=== PATIENT | male | born 1970 | race Caucasian/White ===

== ENCOUNTER 2022-09-14 06:48 | Day surgery (SDC) | payer OTHER, SELFPAY ==
[2022-09-14] VITALS (18 sets, daily range): BP systolic 90–120; BP diastolic 58–93; PULSE 75–98; RESP 12–18; TEMP 36.3–36.6; O2SAT 90–100; BMI 26.6
--- NOTE | 2022-09-14 06:57 | SUR.PREOP ---
Patient provided home covid negative results to RN.
[2022-09-14] MEDS: SODIUM CHLORIDE 0.9 % (FLUSH) 10 ML SYRINGE IVF (07:39)
[2022-09-14] MEDS: LACTATED RINGERS 1000 ML 1,000 ML 100 ML IV (07:39)
[2022-09-14] MEDS: CEFAZOLIN 2 GM INJ IVP (08:00)
[2022-09-14] MEDS: BUPIVACAINE 0.25% 30 ML INJECTION (08:15)
--- NOTE | 2022-09-14 09:16 | P.GSOP_ITS ---
Operative Note Date of procedure: 09/14/22 Pre-op diagnosis: Recurrent right inguinal hernia Post-op diagnosis: same Type of Procedure: laparoscopic repair of recurrent right inguinal hernia right inguinal hernia w ith mesh Indications: The patient is a 51-year-old male with a right inguinal hernia which recurred within the last approximately 2 weeks. He previously had a hernia repair as a child. After discussion of options, because he is symptomatic from the hernia he has elected to proceed with repair. We did discuss that he has had a prior sigmoidectomy and that if there is significant scarring in the preperitoneal space then we would have a low threshold to proceed with open repair. Procedure Description: After discussing the risks and benefits of the procedure, the patient signed informed consent.? The operative site was marked and the patient was brought to the operating room and placed on the operating table in supine position.? Care was taken to pad the patient's pressure points.?? The patient was then intubated by anesthesia.?? The operative site was then prepped and draped in the usual sterile fashion.? A time-out was then performed. A curvilinear incision was made below the umbilicus. Dissection was carried down to subcutaneous tissue until the anterior rectus fascia was encountered. This was incised off the midline on the right. Initially the rectus fibers were not visible and it appeared as though I may possibly have entered the preperitoneal space. The peritoneum itself was not entered. I elected to close this fascial incision with interrupted 0 Vicryl suture and slightly more lateral incised the rectus sheath. Here I encountered the rectus fibers and dissected and retracted them from the posterior rectus sheath. Using my finger to ensure there were no significant adhesions in the preperitoneal space given the patient's prior surgery, I gently dissected the rectus muscle fibers away from the posterior rectus sheath. They came away easily. A port with a dissecting balloon was then introduced into the pre-preperitoneal space. This was inflated under direct vision. The balloon was deflated, removed, and a 10 mm working port was placed. The space was insufflated and a 10 mm 30-degree scope was then advanced into the space. Two 5 mm ports were placed in the midline under direct vision just adjacent to the patient's prior midline incision where there were no adhesions. The epigastric vessels were identified and retracted toward the anterior abdominal wall. The peritoneum was noted to be adherent to the cord structures. A direct inguinal hernia was also noted. The direct hernia was reduced easily and Srinivasa's ligament and the pubic bone were exposed medially. I was able to take this dissection across the midline to ensure adequate coverage of the mesh over the direct hernia. Following this, dissection was carried out laterally. The peritoneum was adherent to the cord structures consistent with prior hernia repair. This was dissected off of the cord structures and reduced this adequately to create a space for the mesh to lay flat. There was no large cord lipoma noted. Once dissection was complete, a piece of Bard 3DMax mesh for the appropriate side was placed into the abdomen. This was positioned with the marker pointed medially. A Tacker was used to attach the mesh medially at Srinivasa's ligament and 1 tack laterally with care to avoid the epigastric vessels and stay above the inguinal ligament. Because of the direct hernia, I placed an additional tack on the anterior medial abdominal wall. Once this was completed, the preperitoneal space desufflated under direct vision to ensure the mesh laid flat. The ports were removed. The fascia from the infraumbilical port was closed with 0 Vicryl. The skin incisions were closed with absorbable subcuticular suture. Sterile dressings were then applied. The scrotum was examined to ensure that both testicles were down. Instrument sponge and needle counts were correct at the end of the case. ? The patient was then woken and transported to the recovery area in stable condition. ? The patient tolerated the procedure well. Findings: Direct right inguinal hernia. Small recurrent indirect inguinal hernia. Anesthesia: GETA Surgeon: Phyllis Akers MD Estimated blood loss (mL): 5 Condition: stable Disposition: PACU
--- NOTE | 2022-09-14 09:28 | W.ANESCHARGE ---
Anesthesia Charges Start Date/Time Anesthesia Start Date: 09/14/22 Anesthesia Start Time: 07:52 Stop Date/Time Anesthesia Stop Date: 09/14/22 Anesthesia Stop Time: 09:23
[2022-09-14] MEDS: ONDANSETRON ODT 4 MG TAB PO (11:49)
--- NOTE | 2022-09-14 11:54 | SUR.PHASEII ---
Patient dressed with assistance from spouse. Transferred independently to [facility]. Patient became nauseated as discharge instructions were discussed. IV had previously been removed. VORB 4 mg Zofran ODT once now Ricardo CASTRO.
== END 2022-09-14 12:42 | disposition home or self-care (01) ==
PROVIDERS: Visit Provider Surgery
PROC: (CPT 49650; principal; 2022-09-14 08:00)
DX: K40.91 Unilateral inguinal hernia, without obstruction or gangrene, recurrent (principal)
CPT/HCPCS: 49651; 00830; A9270; C1781; J0330; J0690; J1885; J2250; J2405; J2704; J2710; J3010; J3490; J7120

== ENCOUNTER 2023-12-19 15:19 | Emergency (ER) | payer BC, SELFPAY ==
[2023-12-19 15:27] VITALS: BP 137/91; PULSE 108; RESP 18; TEMP 36.9; O2SAT 97; BMI 28.1
--- OUTSIDE RECORDS SUMMARY | 2023-12-19 15:28 | XMS_ITS | Referral Summary ---
Author Name Unknown Organization [facility] Address [address] [place] [address] Care Team Providers Care Integrated Logistics Operations Manager Name Role Phone Keyur Kaminski MD Unavailable [phone] Keyur Kaminski MD Primary Care Provider + Encounters Date Type Department Care Team Description 10/26/2023 MyC Medical Advice [facility] [address] [facility] [address] [place] [address] Keyur Kaminski MD MyChart Communication 10/10/2023 Telephone [facility] [address] [facility] [address] [place] [address] Keyur Kaminski MD Prior Auth - Medication (REPATHA SURECLICK 140 MG/ML prefilled autoinjector - DENIED) 10/08/2023 9:00 AM VOICE COACH Virtual Visit [facility] [address] [facility] [address] [place] [phone] Keyur Kaminski MD Hyperlipidemia, unspecified hyperlipidemia type (Primary Dx); Gastroesophageal reflux disease with esophagitis without hemorrhage; Anxiety from Last 3 Months Allergies Active Allergy Reactions Criticality Noted Date Comments Adhesive Tape Other (See Comments) 04/23/2020 Redness, contact dermatitis related symptoms per pt. Amoxicillin-Pot Clavulanate GI Disturbance 10/25/2010 Ciprofloxacin Diarrhea 11/22/2018 c-diff c-diff Clavulanic Acid Diarrhea 11/22/2018 Fish Oil Other (See Comments) 11/29/2009 ?Rizvi Fish, Sole? Rosuvastatin Other (See Comments) High 01/09/2020 Elevated Liver Enzymes Sulfa Antibiotics Hives High 03/09/2017 Medications Medication Sig Dispensed Refills Start Date End Date Status aspirin (ASA) 81 MG EC tablet Take 81 mg by mouth Active augmented betamethasone dipropionate (DIPROLENE AF) 0.05 % external creamIndications:Ecz sandoval, unspecified type APPLY TO AFFECTED AREA TWICE A DAY 50 g 1 03/10/2022 Active rosuvastatin (CRESTOR) 5 MG tabletIndications:Hy perlipidemia, unspecified hyperlipidemia type Take 1 tablet (5 mg) by mouth daily 90 tablet 3 10/08/2023 Active REPATHA SURECLICK 140 MG/ML prefilled autoinjectorIndicati ons:Hyperlipidemia, unspecified hyperlipidemia type Inject 1 mL (140 mg) Subcutaneous every 14 days 6 mL 3 10/08/2023 Active ezetimibe (ZETIA) 10 MG tabletIndications:Hy perlipidemia, unspecified hyperlipidemia type Take 1 tablet (10 mg) by mouth daily 90 tablet 3 10/08/2023 Active omeprazole (PRILOSEC) [address] capsuleIndications:G astroesophageal reflux disease with esophagitis without hemorrhage Take 1 capsule (40 mg) by mouth daily 90 capsule 3 10/08/2023 Active ALPRAZolam (XANAX) 0.5 MG tabletIndications:An xiety TAKE 1 TABLET BY MOUTH TWICE DAILY NEEDED FOR ANXIETY. 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 Hiatal hernia 07/14/2019 Diverticulitis of colon 03/09/2017 Immunizations Name Administration Dates Next Due COVID-19 Bivalent 12+ (Pfizer) 05/08/2022 COVID-19 MONOVALENT 12+ (Pfizer) 05/04/2021,08/06,07/28/2020 COVID-19 Monovalent 18+ (Moderna) 12/02/2021 Flu, Unspecified 04/02/2013 [id number] Novel Flu- Nasal 05/25/2009 Influenza (IIV3) PF 06/16/2014 Influenza Vaccine >6 months,quad, PF 10/2021,06/05/2019,06/07/2017,2015,05/13/2015 Influenza Vaccine, 6+MO IM (QUADRIVALENT W/PRESERVATIVES) 07/27/2023,05/23/2021 Influenza, seasonal, injectable, PF 06/01/2020,1 ,05/08/2013 Mantoux Tuberculin Skin Test 08/15/2010,08/08/19 11 TDAP (Adacel,Boostrix) 11/28/2018 Social History Tobacco Use Types Packs/Day Years Used Date Smoking Tobacco: Never Smokeless Tobacco: Never Tobacco Cessation:Counseling Given: Not Answered Alcohol Use Standard Drinks/Week Comments Yes 0 (1 standard drink = 0.6 oz pur e alcohol) 3x per week PHQ-2 Answer Date Recorded PHQ-2 Score 0 09/07/2022 Adolescent Education Answer Date Record ed Getting School Help Needed Not on file 05/02 Sex and Gender Information Value Date Recorded Sex Assigned at Not on file Gender Identity Not on file Sexual Orientation Not on file Last Filed Vital Signs Vital Sign Reading Time Taken Comments Blood Pressure 128/85 04/11/2023 7:29 AM CDT Pulse 89 04/11/2023 7:29 AM CDT Temperature 36.1 ??C (96.9 ??F) 04/11/2023 7:29 AM CD T Respiratory Rate 14 04/11/2023 7:29 AM CDT Oxygen Saturation 97% 04/11/2023 7:29 AM CDT Inhaled Oxygen Concentration - - Weight 83.1 kg (183 lb 4.8 oz) 04/11/2023 7:29 A M CDT Height 175.3 cm (5' 9) 04/11/2023 7:29 AM CDT Body Mass Index 27.07 04/11/2023 7:29 AM CDT Plan of Treatment Not on file Procedures Procedure Name Priority Date/Time Associated Diagnosis Comments COMPREHENSIVE METABOLIC PANEL Routine 04/11/2023 8:01 AM CDT Annual physical exam LIPID REFLEX TO DIRECT LDL PANEL Routine 04/11/2023 8:01 AM CDT Hyperlipidemia, unspecified hyperlipidemia type from Last 3 Months or Most Recently Relevant to Health Maintenance Results * Lipid panel reflex to direct LDL Fasting (04/11/2023 8:01 AM CDT) Cholesterol 103 <200 mg/dL 04/11/2023 1:25 PM CDT [facility] Triglycerides 92 <150 mg/dL 04/11/2023 1:25 PM CDT [facility] Direct Measure HDL 45 >=40 mg/dL 2022 1:25 PM CDT [facility] LDL Cholesterol Calculated 40 <=100 mg/dL 04/11/2023 1:25 PM CDT [facility] Non HDL Cholesterol 58 <130 mg/dL 04/11/2023 1:25 PM CDT [facility] Blood BLOOD SPECIMEN / Unknown Venipuncture / Unknown 04/11/2023 8:01 AM CDT 04/11/2023 8:01 AM CDT Narrative [facility] - 04/11/2023 1:25 PM CDT Cholesterol Desirable: ??<200 mg/dL Triglycerides Normal: ??Less than 150 mg/dL Borderline High: ??150-199 mg/dL High: ??200-499 mg/dL Very High: ??Greater than or equal to 500 mg/dL Direct Measure HDL Female: ??Greater than or equal to 50 mg/dL Male: ??Greater than or equal to 40 mg/dL LDL Cholesterol Desirable: ??<100mg/dL Above Desirable: ??100-129 mg/dL Borderline High: ??130-159 mg/dL High: ??160-189 mg/dL Very High: ??>= 190 mg/dL Non HDL Cholesterol Desirable: ??130 mg/dL Above Desirable: ??130-159 mg/dL Borderline High: ??160-189 mg/dL High: ??190-219 mg/dL Very High: ??Greater than or equal to 220 mg/dL Keyur Kaminski MD LAB - BLOOD [place] [facility] [address] [facility], [address] [place] [address], [facility] [phone] * (ABNORMAL) Comprehensive metabolic panel (BMP + Alb, Alk Phos, ALT, AST, Total. Bili, TP) (04/11/2023 8:01 AM CDT) Sodium 141 136 - 145 mmol/L 04/11/2023 1:25 PM CDT [facility] Potassium 4.2 3.4 - 5.3 mmol/L 04/11/2023 1:25 PM CDT [facility] Chloride 104 98 - 107 mmol/L 04/11/2023 1:25 PM CDT [facility] Carbon Dioxide (CO2) 27 22 - 29 mmol/L 04/11/2023 1:25 PM CDT [facility] Anion Gap 10 7 - 15 mmol/L 04/11/2023 1:25 PM CDT [facility] Urea Nitrogen 19.3 6.0 - 20.0 mg/dL 04/11/2023 1:25 PM CDT [facility] Creatinine 1.04 0.67 - 1.17 mg/dL 04/11/2023 1:25 PM CDT [facility] Calcium 9.7 8.6 - 10.0 mg/dL 04/11/2023 1:25 PM CDT [facility] Glucose 100(H) 70 - 99 mg/dL 04/11/2023 1:25 PM CDT [facility] Alkaline Phosphatase 76 40 - 129 U/L 04/11/2023 1:25 PM CDT [facility] AST 41 0 - 45 U/L 04/11/2023 1:25 PM CDT [facility] Comment:Reference intervals for this test were updated on 01/15/2023 to more accurately reflect our healthy population. There may be differences in the flagging of prior results with similar values performed with this method. Interpretation of those prior results can be made in the context of the updated reference intervals. ALT 54 0 - 70 U/L 04/11/2023 1:25 PM CDT [facility] Comment:Reference intervals for this test were updated on 01/15/2023 to more accurately reflect our healthy population. There may be differences in the flagging of prior results with similar values performed with this method. Interpretation of those prior results can be made in the context of the updated reference intervals. Protein Total 7.1 6.4 - 8.3 g/dL 04/11/2023 1:25 PM CDT [facility] Albumin 4.5 3.5 - 5.2 g/dL 04/11/2023 1:25 PM CDT [facility] Bilirubin Total 0.5 <=1.2 mg/dL 04/11/2023 1:25 PM CDT [facility] GFR Estimate 87 >60 mL/min/1. 73m2 04/11/2023 1:25 PM CDT [facility] Blood BLOOD SPECIMEN / Unknown Venipuncture / Unknown 04/11/2023 8:01 AM CDT 04/11/2023 8:01 AM CDT Keyur Kaminski MD LAB - BLOOD [facility] Organization Address City/State/ZIP Co de Phone Number [facility] [address] [facility], [address] [place] [address], [facility] [phone] from Last 3 Months or Most Recently Relevant to Health Maintenance Care Teams Integrated Logistics Operations Manager Relationship Specialty Start Date End Date Keyur Kaminski MD [address] [place], [place] [id number] PCP - General Internal Medicine 04/04/23 Keyur Kaminski MD [address] [place] [address] Assigned PCP 02/22/22
--- OUTSIDE RECORDS SUMMARY | 2023-12-19 15:28 | XMS_ITS | Clinical Summary ---
Author Name Unknown Organization [facility] Address [place], [place] [address] Care Team Providers Care Child Specialist Name Role Phone Keyur Kaminski MD Primary Care Provider + Pcp, No Unavailable Unavailable Allergies Active Allergy Reactions Criticality Noted Date Comments Amoxicillin-Pot Clavulanate GI Upset 10/26/19 11 Ciprofloxacin Diarrhea 11/22/2018 c-diff Clavulanic Acid Diarrhea 11/22/2018 Sulfa (Sulfonamide Antibiotics) Hives 11/04 Medications Medication Sig Dispensed Refills Start Date End Date Status docosahexanoic acid-eicosapent (MAXEPA; FISH OIL) capsule Take by mouth every morning. 0 10/25/2010 Active omeprazole (PRILOSEC) 20 mg capsule Take 1 capsule by mouth once daily before a meal. 0 10/25/2010 Active fluticasone, 50 mcg per actuation, nasal (FLONASE) 50 mcg/Actuation nasal spray Inhale 2 Sprays into both nostrils 2 times daily. 2 Bottle 11 04/07/2011 Active pravastatin (PRAVACHOL) 20 mg tablet Take 1 tablet by mouth at bedtime. 90 tablet 3 06/14/2011 Active azithromycin (ZITHROMAX Z-FRANCK) 250 mg tablet Take 1 tablet by mouth. Take 2 tablets on first day then 1 tablet daily 6 tablet 0 08/09/2011 Active omeprazole (PRILOSEC) 20 mg Delayed-Release capsule Take 1 capsule by mouth once daily before a meal. 0 11/22/2018 Active fluticasone (50 mcg per actuation) nasal solution (FLONASE) Inhale 1 Thorp in the nostril(s) once daily. 1 Bottle 11/22/2018 Active Active Problems Problem Noted Date Diagnosed Date Family history of early CAD 10/30/2010 Elevated cholesterol 10/30/2010 Immunizations Name Administration Dates Next Due Tuberculin (PPD) 08/15/2010,08/08/2010 Family History Relation Name Status Comments Father (Age 47) CAD/CA Mother Alive Social History Tobacco Use Types Packs/Day Years Used Date Smoking Tobacco: Never Smokeless Tobacco: Never Alcohol Use Standard Drinks/Week Comments Yes 0 (1 standard drink = 0.6 oz pur e alcohol) infrequent Sex and Gender Information Value Date Recorded Sex Assigned at Not on file Gender Identity Not on file Sexual Orientation Not on file Obstetrics History Last Filed Vital Signs Vital Sign Reading Time Taken Comments Blood Pressure 127/85 11/22/2018 12:58 PM CDT Pulse 90 11/22/2018 12:58 PM CDT Temperature - - Respiratory Rate - - Oxygen Saturation 98% 11/22/2018 12:58 PM CDT Inhaled Oxygen Concentration - - Weight 77.7 kg (171 lb 6.4 oz) 11/22/2018 12:58 PM CDT Height 177.8 cm (5' 10) 10/25/2010 4:40 PM CDT Body Mass Index 24.59 10/25/2010 4:40 PM CDT Plan of Treatment Health Maintenance Due Date Last Done Comments Tdap 11/29/1982 Depression screening for age 12+ 1983 HIV for age 15-65 11/29/1986 BMI (ht and wt on same day) for age 18+ 11/29/1989 Hepatitis C screening for ag e 18-79 11/29/1989 Tetanus booster 1991 Colonoscopy through age 75 11/29/2016 Lipids for age 45-75 11/29/2016 10/26/2010 Zoster (shingles) series for age 50+ (1 of 2) 11/29/2021 COVID-19 vaccine series ( - 2022- season) 2023 Influenza for age 50-64 04/06/2024 Pneumococcal series for age 6-64 Aged Out No longer eligible based on patient's age to complete this topic Procedures Procedure Name Priority Date/Time Associated Diagnosis Comments LIPID PANEL Routine 10/26/2010 8:30 AM CDT Chest pain from Last 3 Months or Most Recently Relevant to Health Maintenance Results * (ABNORMAL) LIPID PANEL (10/26/2010 8:30 AM CDT) CHOLESTEROL,TOTAL 179 <200 mg/dL [facility] TRIGLYCERIDES 151(H) 40 - 150 mg/dL [facility] HDL CHOLESTEROL 37(L) >40 mg/dL [facility] LDL CHOLESTEROL 112 mg/dL [facility] CHOL/HDL RATIO 4.84 Ratio [facility] Blood specimen (specimen) BLOOD SPECIMEN / Unknown 10/26/2010 8:30 AM CDT 10/26/2010 8:30 AM CDT Heber Garcia [facility] [address] [place] [address] from Last 3 Months or Most Recently Relevant to Health Maintenance Care Teams Child Specialist Relationship Specialty Start Date End Date Keyur Kaminski MD PCP - General Family Practice 11/22/18 Pcp, No . 11/22/18
--- OUTSIDE RECORDS SUMMARY | 2023-12-19 15:28 | XMS_ITS | Clinical Summary ---
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/14/2019 Hiatal hernia 07/14/2019 Diverticulitis of colon 03/09/2017 Encounters Date Type Department Care Team Description 10/26/2023 MyC Medical Advice [facility] [address] [place] [phone] Keyur Kaminski MD MyChart Communication 10/10/2023 Telephone [facility] [address] [place] [phone] Keyur Kaminski MD Prior Auth - Medication (REPATHA SURECLICK 140 MG/ML prefilled autoinjector - DENIED) 10/08/2023 9:00 AM VENEER PATCHER Virtual Visit [facility] [address] [place] [phone] Keyur Kaminski MD Hyperlipidemia, unspecified hyperlipidemia type (Primary Dx); Gastroesophageal reflux disease with esophagitis without hemorrhage; Anxiety from Last 3 Months Immunizations Name Administration Dates Next Due COVID-19 Bivalent 12+ (Pfizer) 05/08/2022 COVID-19 MONOVALENT 12+ (Pfizer) 05/04/2021,08/06,07/28/2020 COVID-19 Monovalent 18+ (Moderna) 12/02/2021 Flu, Unspecified 04/02/2013 [id number] Novel Flu- Nasal 05/25/2009 Influenza (IIV3) PF 06/16/2014 Influenza Vaccine >6 months,quad, PF 10/2021,06/05/2019,06/07/2017,2015,05/13/2015 Influenza Vaccine, 6+MO IM (QUADRIVALENT W/PRESERVATIVES) 07/27/2023,05/23/2021 Influenza, seasonal, injectable, PF 06/01/2020,1 ,05/08/2013 Mantoux Tuberculin Skin Test 08/15/2010,08/08/19 11 TDAP (Adacel,Boostrix) 11/28/2018 Family History Medical History Relation Comments Coronary Artery Disease Father Myocardial Infarction Father Diabetes Maternal Grandfather Hypertension Mother Kidney Disease Mother Lymphoma Mother Relation Status Comments Father Maternal Grandfather Mother Social History Tobacco Use Types Packs/Day Years [...] 04/11/2023 7:29 AM CDT Plan of Treatment Health Maintenance Due Date Last Done Comments CT COLONOGRAPHY 1971 FIT 1971 FLEX SIG 1971 sDNA (Cologuard) 1971 COLONOSCOPY 11/29/1981 COLORECTAL CANCER SCREENING 11/29/1981 HIV SCREENING 11/29/1986 HEPATITIS C SCREENING 11/29/1989 HEPATITIS B IMMUNIZATION (1 of 3 - 19+ 3-dose series) 11/29/1990 ZOSTER IMMUNIZATION (1 of 2) 11/29/2021 PHQ-2 (once per calendar year) 2023 09/07/2022, 03/10/2022 ANNUAL REVIEW OF HM ORDERS 04/11/2024 04/11/2023, LIPID 04/11/2024 04/11/2023, 03/10/2022 YEARLY PREVENTIVE VISIT 04/11/2024 04/11/2023, 03/10 GLUCOSE 04/11/2026 04/11/2023, 03/10/2022 ADVANCE CARE PLANNING 04/11/2028 04/11/2023, 023 DTAP/TDAP/TD IMMUNIZATION (2 - Td or Tdap) 11/28/2028 11/28/2018 COVID-19 Vaccine Completed 07/27/2023, 10/2021, 12/02/2021, Additional history exists INFLUENZA VACCINE Completed 07/27/2023, , 05/23/2021, Additional history exists HPV IMMUNIZATION Aged Out No longer e ligible based on patient's age to complete this topic IPV IMMUNIZATION Aged Out No longer e ligible based on patient's age to complete this topic MENINGITIS IMMUNIZATION Aged Out No l onger eligible based on patient's age to complete this topic Pneumococcal Vaccine: Pediatrics (0 to 5 Years) and At-Risk Patients (6 to 64 Years) Aged Out No longer eligible based on patient's age to complete this topic RSV MONOCLONAL ANTIBODY Aged Out No l onger eligible based on patient's age to complete [...] mg/dL Keyur Kaminski MD LAB - BLOOD [place] [facility] [address] [facility] [address], [address] [place] [address], [facility] [phone] * (ABNORMAL) Comprehensive metabolic panel (BMP + [...] CDT Keyur Kaminski MD LAB - BLOOD [place] [facility] Organization Address City/State/ZIP Co de Phone Number [facility] [place] [facility] [address] [facility], [address] [place] [address], [facility] [phone] from Last 3 Months or Most Recently Relevant to Health Maintenance Care Teams Director Mortgage Relationship Specialty Start Date End Date Keyur Kaminski MD [address] [place] [address] PCP - General Internal Medicine 04/04/23 Keyur Kaminski MD [address] [place] [address] Assigned PCP 02/22/22
--- OUTSIDE RECORDS SUMMARY | 2023-12-19 15:28 | XMS_ITS | Encounter Summary ---
Author Name Unknown Organization [facility] Address [address] [place] [address] Care Team Providers Care Software Quality Specialist Name Role Phone Keyur Kaminski MD Unavailable Keyur Kaminski MD Primary Care Provider + Reason for Visit * Reason Comments Recheck Medication Encounter Details Date Type Department Care Team (Late st Contact Info) Description 10/08/2023 9:00 AM MANUFACTURING ENGINEER AUTOMOTIVE Virtual Visit [address] [place] [address] Keyur Kaminski MD [address] [place] [address] Hyperlipidemia, unspecified hyperlipidemia type (Primary Dx); Gastroesophageal reflux disease with esophagitis without hemorrhage; Anxiety Social History Tobacco Use Types Packs/Day Years [...] on file Sexual Orientation Not on file documented as of this encounter Patient Instructions * Patient Instructions* Keyur Kaminski MD - 10/08/2023 9:00 AM MANUFACTURING ENGINEER AUTOMOTIVE Will continue current medication regimen. FACTURING ENGINEER AUTOMOTIVE documented in this encounter Progress Notes * Keyur Kaminski MD - 10/08/2023 9:00 AM CST Jose is a 52 year old who is being evaluated via a billable video visit. How would you like to obtain your AVS? MyChart If the video visit is dropped, the invitation should be resent by: Send to e- mail at: [email or web address] Will anyone else be joining your video visit? No Assessment & Plan Hyperlipidemia, unspecified hyperlipidemia type Patient has currently been tolerating his cholesterol medication regimen without issue. We did elect to continue rosuvastatin at 5 mg daily, Repatha 140 mg injections every 14 days, and Zetia 10 mg daily. Patient has previously been seen in the lipid clinic at [place]. - rosuvastatin (CRESTOR) 5 MG tablet; Take 1 tablet (5 mg) by mouth daily - REPATHA SURECLICK 140 MG/ML prefilled autoinjector; Inject 1 mL (140 mg) Subcutaneous every 14 days - ezetimibe (ZETIA) 10 MG tablet; Take 1 tablet (10 mg) by mouth daily Gastroesophageal reflux disease with esophagitis without hemorrhage Patient feeling symptoms under control. He will continue his omeprazole 40 mg daily. Patient had nofurther questions or concerns in this regard. - omeprazole (PRILOSEC) [address] capsule; Take 1 capsule (40 mg) by mouth daily Anxiety Patient appears to be responding well to therapy and as needed alprazolam for management of his anxiety. He is reporting very infrequent use of his alprazolam. Patient will continue alprazolam 0.5 mgtwice per day as needed for anxiety. Side effects of benzos reviewed. - ALPRAZolam (XANAX) 0.5 MG tablet; TAKE 1 TABLET BY MOUTH TWICE DAILY NEEDED FOR ANXIETY. Prescription drug management 15 minutes spent by me on the date of the encounter doing chart review, history and exam, documentation and further activities per the note BMI Estimated body mass index is 27.07 kg/m?? as calculated from the following: Height as of 04/11/23: 1.753 m (5' 9). Weight as of 04/11/23: 83.1 kg (183 lb 4.8 oz). See Patient Instructions Ramiro Garcia is a 52 year old, presenting for the following health issues: Recheck Medication Patient is a 52-year-old male who participates in a virtual visit for follow-up on his medications.Patient has a history of hyperlipidemia, and he currently takes Repatha 140 mg injections every 2 weeks, rosuvastatin 5 mg daily, and Zetia 10 mg daily for management of his cholesterol. Patient has had some difficulties tolerating higher doses of statins due to elevations in his liver enzymes. Patient also takes omeprazole 40 mg daily for management of reflux. He does have a history of anxiety. Patient does see a therapist on a weekly basis, he has found this to be quite helpful. He does keep a supply of alprazolam 0.5 mg tablets on hand for episodes of breakthrough anxiety. Patient states that he typically will use 1 late in the evenings. He tries to avoid frequent use of this medication.Patient is tolerating all medications without issue. Review of Systems Constitutional, HEENT, cardiovascular, pulmonary, gi and gu systems are negative, except as otherwise noted. Objective Vitals: No vitals were obtained today due to virtual visit. Physical Exam GENERAL: alert and no distress EYES: Eyes grossly normal to inspection. No discharge or erythema, or obvious scleral/conjunctival abnormalities. RESP: No audible wheeze, cough, or visible cyanosis. SKIN: Visible skin clear. No significant rash, abnormal pigmentation or lesions. NEURO: Cranial nerves grossly intact. Mentation and speech appropriate for age. PSYCH: Appropriate affect, tone, and pace of words Video-Visit Details Type of service: Video Visit Originating Location (pt. Location): Home Distant Location (provider location): On-site Platform used for Video Visit: Aleksandar Signed Electronically by: Keyur Kaminski MD FACTURING ENGINEER AUTOMOTIVE documented in this encounter Plan of Treatment Not on file documented as of this encounter Visit Diagnoses Diagnosis Hyperlipidemia, unspecified hyperlipidemia type- Primary Gastroesophageal reflux disease with esophagitis without hemorrhage Anxiety Anxiety state, unspecified documented in this encounter Care Teams Software Quality Specialist Relationship Specialty Start Date End Date Keyur Kaminski MD [address] [place] [address] PCP - General Internal Medicine 04/04/23 Keyur Kaminski MD [address] [place], [place] [id number] Assigned PCP 02/22/22 documented as of this encounter
--- OUTSIDE RECORDS SUMMARY | 2023-12-19 15:28 | XMS_ITS | Encounter Summary ---
Author Name Unknown Organization [facility] Address [address] [place] [address]. [place] [address] Care Team Providers Care Stitcher Hand Name Role Phone Keyur Kaminski MD Unavailable [phone] Keyur Kaminski MD Primary Care Provider + Reason for Visit * Reason Onset Date Comments MyChart Communication 10/26/2023 Encounter Details Date Type Department Care Team (Late st Contact Info) Description 10/26/[address] [facility] [address] [facility] [address] [place] [address] Keyur Kaminski MD [address] [place] [address] MyChart Communication Social History Tobacco Use Types Packs/Day Years [...] on file documented as of this encounter Miscellaneous Notes * Telephone Encounter - Shayna Tsang RN - 10/26/2023 3:36 PM CDT Please see patient's CasterStatst message below. Please advise, thanks. documented in this encounter Plan of Treatment Not on file documented as of this encounter Visit Diagnoses Not on filedocumented in this encounter Care Teams Stitcher Hand Relationship Specialty Start Date End Date Keyur Kaminski MD [address] [place] [address] PCP - General Internal Medicine 04/04/23 Keyur Kaminski MD [address] [place] [address] Assigned PCP 02/22/22 documented as of this encounter
--- OUTSIDE RECORDS SUMMARY | 2023-12-19 15:28 | XMS_ITS | Encounter Summary ---
Author Name Unknown Organization [facility] Address [address] [place] [address] Care Team Providers Care Vocational Counselor Name Role Phone Keyur Kaminski MD Unavailable [phone] Keyur Kaminski MD Primary Care Provider + Reason for Visit * Reason Onset Date Comments Prior Auth - Medication 10/10/2023 REPATHA SURECLICK 140 MG/ML prefilled autoinjector - DENIED Encounter Details Date Type Department Care Team (Late st Contact Info) Description 10/10/[address] [place] [address] Keyur Kaminski MD [address] [place] [address] Prior Auth - Medication (REPATHA SURECLICK 140 MG/ML prefilled autoinjector - DENIED) Social History Tobacco Use Types Packs/Day Years [...] encounter Miscellaneous Notes * Telephone Encounter - Sheryl Sánchez RN - 11/05/2023 3:55 PM CDT Patient called back and was advised of note. Patient would like the release to be faxed. personal fax [phone]- done @ 405pm Gave patient [place] fax # [phone] * Telephone Encounter - Lainey Mckeon RN - 11/05/2023 3:36 PM CDT Images from the original note were not included. Unable to collect authorization for [place] in Care Everywhere as authorization can only be collected in current visit. Video visit note from 10/08/2023 may need to be addended to see if we can print out consent form and patient will need to fill out consent form in order to view records. Attempt # 1 Called Called and left patient a voice mail message on November 05, 2023 3:39 PM to call back the clinic at [phone]. Thank you, Hilario Mckeon, device engineer [facility] 3:39 PM 11/05/2023 * Telephone Encounter - Jo Valadez APRN CNP - 11/05/2023 3:00 PM CDT Can we print it out and send to referrals * Telephone Encounter - Lauren Hernandez - 11/05/2023 2:06 PM CDT Images from the original note were not included. I am unable to see the [facility] visit note - I did request patient authorization. Please advise. * Telephone Encounter - Keyur Kaminski MD - 11/02/2023 4:52 PM CDT Can we please resubmit his letter of medical necessity along with the [facility] visit with Dr. Briceno on June 17, 2021. This is the specialist that had previously managed his Repatha via prescription. * Telephone Encounter - Monica Franz RN - 10/30/2023 8:35 AM CDT [place] denied, routed to provider to review denial information and advise on next steps. Monica Franz RN [facility] * Telephone Encounter - Lauren Hernandez - 10/30/2023 8:20 AM CDT Images from the original note were not included. PRIOR AUTHORIZATION DENIED Medication: REPATHA SURECLICK 140 MG/ML prefilled autoinjector - DENIED Denial Date: 10/30/2023 Denial Rational: INSURANCE STATES PATIENT DID NOT MEET COVERAGE CRITERIA - Appeal Information: IF YOU WOULD LIKE TO APPEAL PLEASE SUPPLY PA TEAM WITH A LETTER OF MEDICAL NECESSITY WITH CLINICAL REASON. * Telephone Encounter - Lauren Hernandez - 10/29/2023 11:57 AM CDT RESUBMITTED WITH LETTER OF MEDICAL NECESSITY. PA Initiation Medication: REPATHA SURECLICK 140 MG/ML prefilled autoinjector - DENIED Insurance Company: [place] Medicaid ([facility]) - Pharmacy Filling the Rx: [facility] [address] [place] [address] - [address] [place] [address] Filling Pharmacy Filling Pharmacy Start Date: 10/22/2023 * Telephone Encounter - Keyur Kaminski MD - 10/26/2023 2:04 PM CDT A letter of medical necessity has been dictated and is available in [facility]. * Telephone Encounter - Lauren Hernandez - 10/23/2023 10:08 AM CDT Images from the original note were not included. PRIOR AUTHORIZATION DENIED Medication: REPATHA SURECLICK 140 MG/ML prefilled autoinjector - DENIED Denial Date: 10/23/2023 Denial Rational: INSURANCE STATES PATIENT DID NOT MEET COVERAGE CRITERIA - Appeal Information: IF YOU WOULD LIKE TO APPEAL PLEASE SUPPLY PA TEAM WITH A LETTER OF MEDICAL NECESSITY WITH CLINICAL REASON. * Telephone Encounter - Lauren Hernandez - 10/22/2023 2:31 PM CDT Images from the original note were not included. Retail Pharmacy Prior Authorization Team PA Initiation Medication: REPATHA SURECLICK 140 MG/ML prefilled autoinjector Insurance Company: [place] Medicaid ([facility]) - Pharmacy Filling the Rx: [facility] [address] [place] [address] Filling Pharmacy Filling Pharmacy Start Date: 10/22/2023 * Telephone Encounter - Martha Hassan - 10/10/2023 8:13 AM CST Images from the original note were not included. Retail Pharmacy Prior Authorization Team Note: Due to record-high volumes, our turn-around time is taking longer than usual . We are currently 10 business days behind in the pools. We are working diligently to submit all requests in a timely manner and in the order they are received. Please only flag TRUE URGENT requests as high priority to the pool at this time. If you have questions - please send a note/message in the active PA encounter and send back to the RPPA (Retail Pharmacy Prior Authorization) team [[id number]]. If you have more specific questions about our process please reach out to our supervisor maintenance and custodians Nataliia Donald. Thank you! RINARY MILK SPECIALIST documented in this encounter Plan of Treatment Not on file documented as of this encounter Visit Diagnoses Not on filedocumented in this encounter Care Teams Vocational Counselor Relationship Specialty Start Date End Date Keyur Kaminski MD [address] [place] [address] PCP - General Internal Medicine 04/04/23 Keyur Kaminski MD [address] [place] [address] Assigned PCP 02/22/22 documented as of this encounter
--- NOTE | 2023-12-19 16:47 | CT_ITS ---
Patient: NIKA NOLASCO Facility:?[facility] Patient ID:?[id number] Site Patient ID:?[id number]. Site :?[id number] Study:?CT-Abdomen/Pelvis W/ 93CC ISOVUE 370-12/19/2023 5:22:32 PM Ordering Physician:TAMARA Final Report: INDICATION: Abdominal pain. TECHNIQUE: Multiplanar CT examination of the abdomen and pelvis was performed after the administration of 93 mL Isovue 370 intravenous contrast. COMPARISON: None. FINDINGS: Lower chest: No focal consolidation. Normal heart size. No pleural effusions or pneumothorax. Liver: Hepatic steatosis. Gallbladder: Unremarkable. Biliary: Unremarkable. Pancreas: Within normal limits. Spleen: Unremarkable. Adrenal glands: Unremarkable. Renal/ureters/bladder: Normal in size and symmetrically enhancing. No obstructive uropathy. No hydronephrosis or obstructive urinary calculi. No suspicious renal masses. The ureters appear unremarkable. The bladder is within normal limits. Pelvis: Unremarkable. Gastrointestinal: Anastomotic chain sutures at the rectosigmoid junction. Mild colonic wall thickening and pericolonic fat stranding involving a short segment of the sigmoid colon, with associated sigmoid colonic diverticulosis. No peridiverticular abscess. No extraluminal air. Nonvisualized appendix. Mild colonic stool burden. Vasculature: No aortic aneurysm. The portal vein remains patent. No significant atherosclerotic calcifications. Lymph nodes: No pathologic lymphadenopathy by size criteria. Peritoneum: Trace free fluid along the left pericolic gutter and into the lower pelvis. No pneumoperitoneum. No drainable fluid collections. Abdominal wall/soft tissues: Unremarkable. Status post right inguinal hernia repair. Tiny fat containing umbilical hernia. Bones: No acute osseous abnormalities. IMPRESSION: 1. Findings compatible with acute uncomplicated sigmoid diverticulitis. No abscess identified. 2. Diffuse hepatic steatosis. Please note that all CT scans at this facility use dose modulation, iterative reconstruction, and/or weight-based dosing when appropriate to reduce radiation dose to as low as reasonably achievable. Dictated by Douglas Blas MD @ 12/19/2023 5:54:40 PM Signed by:?Douglas Blas MD @12/19/2023 5:54:40 PM (Electronic Signature)
--- NOTE | 2023-12-19 16:47 | ED.ABDPAIN ---
HPI - Abdominal Pain General Chief Complaint: Abdominal Pain Stated Complaint: L lower abdominal pain Time Seen by Provider: 12/19/23 16:33 History of Present Illness HPI narrative: This 53-year-old male comes in with left lower quadrant abdominal pain that began this morning. He states that it is a constant pain and makes him wonder if he has recurrent diverticulitis. The patient states that he did have 3 or 4 episodes of diverticulitis that warranted a hemicolectomy. The surgeon at [facility] that did this stated that there were adhesions of the bowel noted in the surgery which made it more difficult than typical. He does not report any fevers or blood in the toilet. He is concerned that he may have a recurrence again now. He also took antibiotics during this time and developed AC diff colitis that was also rather miserable for him. He arrives here with normal vital signs and comes in early in the course of his symptoms out of concern of what he previously went through and wanting to rule out any sign of recurrence regarding these matters. Related Data Home Medications Medication Instructions Recorded Confirmed alfuzosin 10 mg tablet,extended 10 mg PO QDAY 09/04/22 12/19/23 release 24 hr aspirin 81 mg tablet,delayed 81 mg PO QDAY 09/04/22 12/19/23 release evolocumab 140 mg/mL subcutaneous 140 mg subcut Q2W 09/04/22 12/19/23 pen injector (Bacilio Sequeira) ezetimibe 10 mg tablet 10 mg PO QDAY 09/04/22 12/19/23 omeprazole 40 mg capsule,delayed 40 mg PO QDAY 09/04/22 12/19/23 release alprazolam 0.5 mg tablet 0.5 mg PO BID-TID PRN 12/19/23 12/19/23 Previous Rx's Medication Instructions Recorded hydrocodone 5 mg-acetaminophen 325 1 tab PO Q4-6H PRN pain #15 tabs 12/19/23 mg tablet levofloxacin 500 mg tablet 500 mg PO DAILY 7 days #7 tabs 12/19/23 metronidazole 500 mg tablet 500 mg PO BID 7 days #14 tabs 12/19/23 ondansetron HCl 4 mg tablet 4 mg PO Q6H #15 tabs 12/19/23 Allergies Allergy/AdvReac Type Severity Reaction Status Date / Time Sulfa (Sulfonamide Allergy Intermediate Hives Verified 09/25/22 14:09 Antibiotics) ciprofloxacin Allergy Diarrhea Verified 09/25/22 14:09 amoxicillin [From Augmentin] AdvReac Diarrhea Verified 09/25/22 14:09 clavulanic acid AdvReac Diarrhea Verified 09/25/22 14:09 [From Augmentin] statin AdvReac Intermediate Uncoded 09/25/22 14:09 Review of Systems Status of ROS Reports: 10 or more systems reviewed and unremarkable except as noted in History and below Narrative Constitutional: No fevers, no weight gain or loss. Eyes: No discharge. No vision changes. HENT: No congestion, no sore throat, no ear pain. Cardiovascular: No chest pain, no palpitations. Respiratory: No shortness of breath, no wheezes, no cough. Gastrointestinal: No vomiting, no diarrhea. Abdominal pain as described above. Genitourinary: No dysuria, no hematuria. Musculoskeletal: Normal range of motion. Skin: No rashes, no pruritis. Neurological: No dizziness, weakness, sensory change, speech change. Endo/Heme/Allergies: No bruising or bleeding. No polydipsia. Pysch: no suicidality, no anxiety, no insomnia. All other systems reviewed and are negative. 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 - Anomalous pulmonary venous connection, unspecified (ICD-10) Dyslipidemia ?E78.5 - Hyperlipidemia, unspecified (ICD-10) Eczema ?L30.9 - Dermatitis, unspecified (ICD-10) GERD (gastroesophageal reflux disease) ?K21.9 - Gastro-esophageal reflux disease without esophagitis (ICD-10) Surgical History (Updated 09/25/22 @ 17:28 by Phyllis Akers MD) S/P right inguinal hernia repair ?Z98.890 - Other specified postprocedural states (ICD-10) ?Z87.19 - Personal history of other diseases of the digestive system (ICD-10) H/O right inguinal hernia repair ?Z98.890 - Other specified postprocedural states (ICD-10) ?Z87.19 - Personal history of other diseases of the digestive system (ICD-10) H/O nasal septoplasty ?Z98.890 - Other specified postprocedural states (ICD-10) S/P medial meniscus repair of left knee ?Z98.890 - Other specified postprocedural states (ICD-10) S/P laparoscopic-assisted sigmoidectomy ?Z90.49 - Acquired absence of other specified parts of digestive tract (ICD-10) Social History (Updated 09/04/22 @ 14:49 by Phyllis Akers MD) 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 Smoking Status: Never smoker How often do you have a drink containing alcohol: monthly or less How many standard drinks containing alcohol do you have on a typical day: 1 or 2 AUDIT-C Alcohol total score: 1 Non-prescribed substance use: denies use Caffeine: Yes (coffee) Exam Narrative: Exam Narrative: Constitutional: Well-developed, well-nourished, no acute distress. HEENT: Normocephalic, atraumatic. Neck: Normal range of motion. Nontender. Supple. Heart: Regular. No murmurs. Normal rate. Intact distal pulses. Lungs: Clear to auscultation. No chest discomfort. No wheezes, rhonchi, or rales. Abdomen: Decreased bowel sounds. Pain localized in the left lower quadrant. No rebound tenderness. Genitalia: Deferred. Back: No midline tenderness. Normal range of motion. Extremities: Normal range of motion. No injury. Skin: Intact. No rash. Warm. No erythema or pallor. Neurologic: No altered sensation. No weakness. Alert and oriented. Psychiatric: No suicidality. No anxiety or depression. No insomnia. Nursing notes and vitals signs are reviewed. Const: Vital Signs, click to edit/add: Vital Signs - 24 hr 12/19/23 15:27 Temperature 98.5 F Pulse Rate [Right Pulse Oximeter] 108 H Respiratory Rate 18 Blood Pressure [Ri ght Upper Arm] 137/91 H Pulse Oximetry 97 Oxygen Delivery Me thod Room Air Course Vital Signs Vital signs: Initial Vital Signs Temperature 98.5 F 12/19/23 15:27 Temperature Source Temporal Artery Scan 12/19/23 15:27 Pulse Rate 108 H 12/19/23 15:27 Respiratory Rate 18 12/19/23 15:27 Blood Pressure 137/91 H 12/19/23 15:27 Blood Pressure Mean 106 H 12/19/23 15:27 Blood Pressure Position Sitting 12/19/23 15:27 Pulse Oximetry 97 12/19/23 15:27 Oxygen Delivery Method Room Air 12/19/23 15:27 Vital Signs Temperature 98.5 F 12/19/23 15:27 Pulse Rate 108 H 12/19/23 15:27 Respiratory Rate 18 12/19/23 15:27 Blood Pressure 137/91 H 12/19/23 15:27 Pulse Oximetry 97 12/19/23 15:27 Oxygen Delivery Method Room Air 12/19/23 15:27 Temperature 98.5 F 12/19/23 15:27 Pulse Rate 108 H 12/19/23 15:27 Respiratory Rate 18 12/19/23 15:27 Blood Pressure 137/91 H 12/19/23 15:27 Pulse Oximetry 97 12/19/23 15:27 Oxygen Delivery Method Room Air 12/19/23 15:27 MDM - Abdominal Pain MDM Narrative Medical decision making narrative: This patient comes in with abdominal pain that is suspicious for recurrent diverticulitis. CT imaging with IV contrast is obtained and does show evidence of acute uncomplicated diverticulitis. 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 He understands these matters and also understands that recent evidence is showing that antibiotic treatment does not seem to be necessary for uncomplicated acute diverticulitis. This patient's current symptoms are uncomplicated and acute but he does have a history of hemicolectomy and was complicated with C diff colitis. I did talk with him about options going forward and he is rather distressed about its recurrence even after having at a hemicolectomy. It was agreed to provide a week's worth of Levaquin and Flagyl and he will discontinue use these when symptoms are improving or absent. He also received prescriptions for some tablets of [place] and Zofran. Lab Data Labs: Lab Results 12/19/23 Range/Units 16:45 WBC 12.55 H (4.50-11.00) K/uL RBC 5.23 (4.30-5.90) m/uL Hgb 16.0 (13.5-17.5) gm/dL Hct 46.0 (37.0-53.0) % MCV 88 (80-100) fL MCH 31 (26-34) pg MCHC 35 (32-36) gm/dL RDW Coeff of Nikki 12.5 (11.5-15.5) % Plt Count 275 (140-440) K/uL Neut % (Auto) 76.3 H (42.0-72.0) % Lymph % (Auto) 16.8 L (20-44) % Reeves % (Auto) 5.5 (0.0-11.0) % Eos % (Auto) 0.8 (0.0-7.0) % Baso % (Auto) 0.4 (0.0-3.0) % Neut # (Auto) 9.60 H (1.7-7.0) K/uL Lymph # (Auto) 2.10 (0.90-2.90) K/uL Reeves # (Auto) 0.70 (0.00-0.90) K/UL Eos # (Auto) 0.10 (0.00-0.50) K/uL Baso # (Auto) 0.10 (0.00-0.30) K/uL Abs Immat Gran (auto) 0.00 (0.00-0.30) K/uL Imm/Tot Granulo (auto) 0.2 % Sodium 140 (135-149) mmol/L Potassium 4.1 (3.6-5.1) mmol/L Chloride 104 (96-114) mmol/L Carbon Dioxide 29 (20-32) mmol/L Anion Gap 7 (7-15) mEq/L BUN 15 (7-30) mg/dL Creatinine 0.9 (0.5-1.5) mg/dL Estimated Creat Clear 96.01 Estimated GFR 103 ml/min Glucose 95 (60-115) mg/dL Calcium 9.6 (8.4-10.6) mg/dL Imaging Data CT scan - abdomen: Radiologist's impression: 1. Findings compatible with acute uncomplicated sigmoid diverticulitis. No abscess identified. 2. Diffuse hepatic steatosis. Discharge Plan Discharge Clinical Impression: Diverticulitis Patient Disposition: Home, Self-Care Condition: Stable Additional Instructions: Take medication as prescribed and needed. Follow up with MD or return if symptoms are persistent or worsening. Prescriptions: New hydrocodone-acetaminophen 5-325 mg tablet 1 tab PO Q4-6H PRN (Reason: pain) Qty: 15 0RF ondansetron HCl 4 mg tablet 4 mg PO Q6H Qty: 15 0RF metronidazole 500 mg tablet 500 mg PO BID 7 Days Qty: 14 0RF levofloxacin 500 mg tablet 500 mg PO DAILY 7 Days Qty: 7 0RF No Action Repatha SureClick 140 mg/mL pen injector 140 mg subcut Q2W ezetimibe 10 mg tablet 10 mg PO QDAY omeprazole 40 mg capsule,delayed release(DR/EC) 40 mg PO QDAY aspirin 81 mg tablet,delayed release (DR/EC) 81 mg PO QDAY alfuzosin 10 mg tablet extended release 24 hr 10 mg PO QDAY Rx Instructions: administer after the same meal each day alprazolam 0.5 mg tablet 0.5 mg PO BID-TID PRN Follow Up/Referrals: Provider,Not a Local [Primary Care Provider] - Stand Alone Forms: [facility] Info Instructions
[2023-12-19 17:02] LABS: Basophils Percent Auto 0.4 % (0.0-3.0); Eosinophils Percent Auto 0.8 % (0.0-7.0); Immature Granulocytes Pct Auto 0.2 %; Lymphocytes Percent Auto 16.8 % (20-44); Mean Corpuscular HGB Conc 35 gm/dL (32-36); Mean Corpuscular Hemoglobin 31 pg (26-34); Mean Corpuscular Volume 88 fL (80-100); Monocytes Percent Auto 5.5 % (0.0-11.0); Neutrophils Percent Auto 76.3 % (42.0-72.0); Platelet Count* 275 K/uL (140-440); RDW Coefficient of Variation % 12.5 % (11.5-15.5); Red Blood Count 5.23 m/uL (4.30-5.90); White Blood Count* 12.55 K/uL (4.50-11.00)
--- OUTSIDE RECORDS SUMMARY | 2023-12-19 17:06 | XMS_ITS | Clinical Summary ---
Author Name Unknown Organization [employer] [facility] Address [place], [place] [address] Care Team Providers Care Preflight Mechanic Name Role Phone Keyur Kaminski MD Primary [...] per actuation) nasal solution (FLONASE) Inhale 1 [place] in the nostril(s) once daily. 1 Bottle 11/22/2018 Active Active Problems Problem Noted Date Diagnosed Date Family history of early CAD 10/30/2010 Elevated cholesterol 10/30/2010 Immunizations Name Administration Dates Next Due Tuberculin (PPD) 08/15/2010,08/08/2010 Family History Relation Name Status Comments Father (Age 47) CAD/MT Mother Alive Social History Tobacco Use Types [...] 10/26/2010 8:30 AM CDT Heber Garcia [facility] [address] [place] [address] from Last 3 Months or Most Recently Relevant to Health Maintenance Care Teams Preflight Mechanic Relationship Specialty Start Date End Date Keyur Kaminski MD PCP - General Family Practice 11/22/18 Pcp, No . 11/22/18
--- OUTSIDE RECORDS SUMMARY | 2023-12-19 17:06 | XMS_ITS | Encounter Summary ---
Author Name Unknown Organization [facility] Address [address] [place] [address] Care Team Providers Care Asphalt Tile Floor Layer Name Role Phone Keyur Kaminski MD Unavailable [phone] Keyur Kaminski MD Primary Care Provider + Reason for Visit * Reason Comments Recheck Medication Encounter Details Date Type Department Care Team (Late st Contact Info) Description 10/08/2023 9:00 AM RN HEMODIALYSIS Virtual Visit [address] [place] [address] Keyur Kaminski MD [address] [place] [address] Hyperlipidemia, unspecified hyperlipidemia type (Primary [...] Keyur Kaminski MD - 10/08/2023 9:00 AM RN HEMODIALYSIS Will continue current medication regimen. HEMODIALYSIS documented in this encounter Progress Notes * Keyur Kaminski MD - 10/08/2023 9:00 AM CST Jose is a 52 year old who is being evaluated via a billable video visit. How would you like to obtain your AVS? MyChart If the video visit is dropped, the invitation should be resent by: Send to e- mail at: [email or web address] Will anyone else be joining your video visit? No Assessment & Plan Hyperlipidemia, unspecified hyperlipidemia type Patient has currently been tolerating his cholesterol medication regimen without issue. We did elect to continue rosuvastatin at 5 mg daily, Repatha 140 mg injections every 14 days, and Zetia 10 mg daily. Patient has previously been seen in the lipid clinic at [facility]. - rosuvastatin (CRESTOR) 5 MG tablet; Take [...] Aleksandar Signed Electronically by: Keyur Kaminski MD HEMODIALYSIS documented in this encounter Plan of Treatment Not on file documented as of this encounter Visit Diagnoses Diagnosis Hyperlipidemia, unspecified hyperlipidemia type- Primary Gastroesophageal reflux disease with esophagitis without hemorrhage Anxiety Anxiety state, unspecified documented in this encounter Care Teams Asphalt Tile Floor Layer Relationship Specialty Start Date End Date Keyur Kaminski MD [address] [place] [address] PCP - General Internal Medicine 04/04/23 Keyur Kaminski MD [address] [place], [place] [address] Assigned PCP 02/22/22 documented as of this encounter
--- OUTSIDE RECORDS SUMMARY | 2023-12-19 17:06 | XMS_ITS | Encounter Summary ---
Author Name Unknown Organization [facility] Address [address] [place] [address]. [place] [address] Care Team Providers Care Office Machine Installer Name Role Phone Keyur Kaminski MD Unavailable [phone] Keyur Kaminski MD Primary Care Provider + Reason for Visit * Reason Onset Date Comments MyChart Communication 10/26/2023 Encounter Details Date Type Department Care Team (Late st Contact Info) Description 10/26/2023 MyC Medical Advice [facility] [address] [place] [address] Keyur Kaminski MD [address] [place] [address] MyChart Communication Social History Tobacco [...] 10/26/2023 3:36 PM CDT Please see patient's Well[employer] message below. Please advise, thanks. documented in this encounter Plan of Treatment Not on file documented as of this encounter Visit Diagnoses Not on filedocumented in this encounter Care Teams Office Machine Installer Relationship Specialty Start Date End Date Keyur Kaminski MD [address] [place] [address] PCP - General Internal Medicine 04/04/23 Keyur Kaminski MD [address] [place] [address] Assigned PCP 02/22/22 documented as of this encounter
--- OUTSIDE RECORDS SUMMARY | 2023-12-19 17:06 | XMS_ITS | Encounter Summary ---
Author Name Unknown Organization [facility] Address [address] [place] [address] Care Team Providers Care Parts Counter Associate Name Role Phone Keyur Kaminski MD Unavailable [phone] Keyur Kaminski MD Primary Care Provider + Reason for Visit * Reason Onset Date Comments Prior Auth - Medication 10/10/2023 REPATHA SURECLICK 140 MG/ML prefilled autoinjector - DENIED Encounter Details Date Type Department Care Team (Late st Contact Info) Description 10/10/[address] [place] [address] Keyur Kaminski MD [address] [place] [address] Prior Auth - Medication (REPATHA [...] the release to be faxed. personal fax [phone]- done @ 405pm Gave patient [place] fax # [phone] * Telephone Encounter - Lainey Mckeon RN - 11/05/2023 3:36 PM CDT Images from the original note were not included. Unable to collect authorization for [place] in Care Everywhere as authorization can only [...] PM to call back the clinic at [phone]. Thank you, Hilario Mckeon, measurement department chief clerk [facility] 3:39 PM 11/05/2023 * Telephone Encounter - Jo Valadez APRN CNP - 11/05/2023 3:00 PM CDT Can we print it out and send to referrals * Telephone Encounter - Lauren Hernandez - 11/05/2023 2:06 PM CDT Images from the original note were not included. I am unable to see the [facility] visit note - I did request patient authorization. Please advise. * Telephone Encounter - Keyur Kaminski MD - 11/02/2023 4:52 PM CDT Can we please resubmit his letter of medical necessity along with the [facility] visit with Dr. Briceno on June 17, 2021. This is the specialist that had previously managed his Repatha via prescription. * Telephone Encounter - Monica Franz RN - 10/30/2023 8:35 AM CDT Sabaa PA denied, routed to provider to review denial information and advise on next steps. Monica Franz RN [facility] * Telephone Encounter - Lauren Hernandez [...] autoinjector - DENIED Insurance Company: [place] Medicaid [facility] - Pharmacy Filling the Rx: [facility] [address] [place] [address] - [address] [place] [address] Filling Pharmacy Filling Pharmacy Start Date: 10/22/2023 * Telephone Encounter - Keyur Kaminski MD - 10/26/2023 2:04 PM CDT A letter of medical necessity has been dictated and is available in [employer]. * Telephone Encounter - Lauren Hernandez - [...] CLINICAL REASON. * Telephone Encounter - Lauren Hernnadez - 10/22/2023 2:31 PM CDT Images from the original note were not included. Retail Pharmacy Prior Authorization Team PA Initiation Medication: REPATHA SURECLICK 140 MG/ML prefilled autoinjector Insurance Company: [place] Medicaid ([facility] - Pharmacy Filling the Rx: [facility] [address] [place] [address] Filling Pharmacy Filling Pharmacy Start Date: 10/22/2023 [...] the RPPA (Retail Pharmacy Prior Authorization) team [[id number]]. If you have more specific questions about our process please reach out to our boatbuilder supervisor Nataliia Donald. Thank you! [employer]ISOR SOLDER [employer]KING documented in this encounter Plan of Treatment Not on file documented as of this encounter Visit Diagnoses Not on filedocumented in this encounter Care Teams Parts Counter Associate Relationship Specialty Start Date End Date Keyur Kaminski MD [address] [place] [address] PCP - General Internal Medicine 04/04/23 Keyur Kaminski MD [address] [place] [address] Assigned PCP 02/22/22 documented as of this encounter
--- OUTSIDE RECORDS SUMMARY | 2023-12-19 17:06 | XMS_ITS | Clinical Summary ---
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 Hiatal hernia 07/14/2019 Diverticulitis of colon 03/09/2017 Encounters Date Type Department Care Team Description 10/26/2023 MyC Medical Advice [facility] [address] [place] [phone] Keyur Kaminski MD MyChart Communication 10/10/2023 Telephone [facility] [address] [place] [phone] Keyur Kaminski MD Prior Auth - Medication (REPATHA SURECLICK 140 MG/ML prefilled autoinjector - DENIED) 10/08/2023 9:00 AM CHANNEL CEMENTER INSOLE MACHINE Virtual Visit [facility] [address] [place] [phone] Keyur Kaminski MD Hyperlipidemia, unspecified hyperlipidemia type (Primary Dx); Gastroesophageal reflux disease with esophagitis without hemorrhage; Anxiety from Last 3 Months Immunizations Name Administration Dates Next Due COVID-19 Bivalent 12+ (Pfizer) 05/08/2022 COVID-19 MONOVALENT 12+ (Pfizer) 05/04/2021,08/06,07/28/2020 COVID-19 Monovalent 18+ (Moderna) 12/02/2021 Flu, Unspecified 04/02/2013 [id number] Novel Flu- Nasal 05/25/2009 Influenza (IIV3) PF [...] LAB - BLOOD [place] [facility] Core Lab [address], [address] [place] [address], [facility] [phone] * (ABNORMAL) Comprehensive metabolic panel (BMP + [...] Kaminski MD LAB - BLOOD [place] [facility] Organization Address City/State/ZIP Co de Phone Number [facility] [place] Core Lab [address] [facility] [address] [facility] [place] [address], [facility] [phone] from Last 3 Months or Most Recently Relevant to Health Maintenance Care Teams Powerhouse Electrician Apprentice Relationship Specialty Start Date End Date Keyur Kaminski MD [address] [place] [address] PCP - General Internal Medicine 04/04/23 Keyur Kaminski MD [address] [place] [address] Assigned PCP 02/22/22
--- OUTSIDE RECORDS SUMMARY | 2023-12-19 17:06 | XMS_ITS | Referral Summary ---
Author Name Unknown Organization [facility] Address [address] [place] [address] Care Team Providers Care Relaster Name Role Phone Keyur Kaminski MD Unavailable [phone] Keyur Kaminski MD Primary Care Provider + Encounters Date Type Department Care Team Description 10/26/2023 MyC Medical Advice [facility] [address] [place] [address] Keyur Kaminski MD MyChart Communication 10/10/2023 Telephone [facility] [address] [place] [address] Keyur Kaminski MD Prior Auth - Medication (REPATHA SURECLICK 140 MG/ML prefilled autoinjector - DENIED) 10/08/2023 9:00 AM TECHNICAL INTERNSHIP Virtual Visit [facility] [address] [place] [phone] Keyur Kaminski MD Hyperlipidemia, unspecified hyperlipidemia type [...] connection 07/14/2019 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 Hiatal hernia 07/14/2019 Diverticulitis of colon 03/09/2017 Immunizations Name Administration Dates Next Due COVID-19 Bivalent 12+ (Pfizer) 05/08/2022 COVID-19 MONOVALENT 12+ (Pfizer) 05/04/2021,08/06,07/28/2020 COVID-19 Monovalent 18+ (Moderna) 12/02/2021 Flu, Unspecified 04/02/2013 [id number] Novel Flu- Nasal 05/25/2009 Influenza (IIV3) PF [...] LAB - BLOOD [place] J[place] [facility] [place] Core Lab [address], [address] [place] [address], [facility] [phone] * (ABNORMAL) Comprehensive metabolic panel (BMP + [...] Kaminski MD LAB - BLOOD [place] [facility] Organization Address City/State/ZIP Co de Phone Number [facility] [place] Core Lab [address], [address] [place] [address], [facility] [phone] from Last 3 Months or Most Recently Relevant to Health Maintenance Care Teams Relaster Relationship Specialty Start Date End Date Keyur Kaminski MD [address] [place], [place] [address] PCP - General Internal Medicine 04/04/23 Keyur Kaminski MD [address] [place] [address] Assigned PCP 02/22/22
[2023-12-19 17:10] LABS: Slide Review Reflex No
[2023-12-19 17:18] LABS: Chloride* 104 mmol/L (96-114); Potassium* 4.1 mmol/L (3.6-5.1); Sodium* 140 mmol/L (135-149)
[2023-12-19 17:21] LABS: Anion Gap 7 mEq/L (7-15); Blood Urea Nitrogen* 15 mg/dL (7-30); Carbon Dioxide* 29 mmol/L (20-32); Creatinine* 0.9 mg/dL (0.5-1.5); Est. Creatinine Clearance* 96.01; Estimated Glomerular Filt Rate 103 ml/min; Glucose* 95 mg/dL (60-115)
[2023-12-19 17:22] LABS: Calcium* 9.6 mg/dL (8.4-10.6)
== END 2023-12-19 18:38 | disposition home or self-care (01) ==
PROVIDERS: Emergency Provider Emergency Medicine Emergency Medical Services
DX: K57.32 Diverticulitis of large intestine without perforation or abscess without bleeding (principal)
CPT/HCPCS: 36415; 74177; 80048; 85025; 99284; Q9967